=== PATIENT | female | born 1975 | race Caucasian/White ===

== ENCOUNTER → 2018-04-02 | Outpatient (CLI) | payer OTHER ==
[~2018-04-02] MED LIST: ACETCAP13 PO; CALC1TAB25 PO; CHOL1000 PO; CYAN100T PO; MULT-506 PO; NAPR1TAB9 PO; PROG1CAP PO; ZINC1CAP PO
== END | disposition home or self-care (01) ==
LOC: C.PAPS 11:57
PROVIDERS: ATTEND Obstetrics & Gynecology
DX: N92.0 Excessive and frequent menstruation with regular cycle (principal)

== ENCOUNTER 2018-04-12 05:40 | Observation (INO) | payer OTHER ==
[2018-04-02 10:22] LABS: BASO % 0.5 %; BASO ABS # 0.02 K/uL (0-0.2); EOS % 3.8 %; EOS ABS # 0.15 K/uL (0-0.5); HEMATOCRIT 38.9 % (37-47); HEMOGLOBIN 13.4 g/dL (12.0-16.0); LYMPH % 45.7 %; LYMPH ABS # 1.81 K/uL (1.2-3.4); MEAN CELL VOLUME 94.4 fL (80-100); MEAN CORPUSCULAR HEMOGLOBIN 32.5 pg (25-34); MEAN CORPUSCULAR HGB CONC 34.4 g/dl (32-36); MEAN PLATELET VOLUME 9.7 fL (7.4-10.4); MONO % 7.8 %; MONO ABS # 0.31 K/uL (0.11-0.59); NEUT % 42.2 %; NEUT ABS # 1.67 K/uL (1.4-6.5); PLATELET COUNT 238 K/uL (130-400); RED CELL DISTRIBUTION WIDTH CV 12.2 % (11.5-14.5); RED CELL DISTRIBUTION WIDTH SD 41.7 fL (36.4-46.3); WHITE BLOOD COUNT 3.96 K/uL (4.8-10.8)
[2018-04-02 10:33] LABS: BLOOD UREA NITROGEN 19 mg/dl (7-18); CALCIUM 8.7 mg/dl (8.5-10.1); CARBON DIOXIDE 28 mmol/L (21-32); CREATININE 0.71 mg/dl (0.60-1.20); GLUCOSE 107 mg/dl (70-99); POTASSIUM 3.9 mmol/L (3.5-5.1); SODIUM 139 mmol/L (136-145)
[~2018-04-12] VITALS: Ht 157.5 cm; Wt 50.0 kg
[2018-04-12] VITALS (8 sets, daily range): BP systolic 117–137; BP diastolic 61–75; PULSE 53–59; TEMP 36.6–37; O2SAT 99–100; Ht 157.5 cm; Wt 50.0 kg
[2018-04-12] MEDS ORDERED: CEFAZOLIN 2000MG IV PUSH 15 ML IV SCH (06:00)
[2018-04-12] MEDS ORDERED: LACTATED RINGER'S 1000ML 1,000 ML IV SCH ×4 (06:00→10:50)
[2018-04-12] MEDS ORDERED: METHYLENE BLUE 0.5% 10 ML VIAL ONE ×2 (06:57→08:11)
[2018-04-12] MEDS ORDERED: BUPIVACAINE 0.5 % 5 MG/1 ML MPF 30ML VIAL ONE (06:57)
--- NOTE | 2018-04-12 06:59 | History & Physical Bridge Note ---
H&P Re-Evaluation Bridge Note: I have examined the patient, reviewed the History & Physical and in the interval since the performance of the History & Physical I have noted the following changes of clinical significance: No changes noted Note, wishes supra-cervical hysterectomy if possible. Consent changed and initialed with patient. YUNIOR
[2018-04-12] MEDS ORDERED: MIDAZOLAM HCL 1 MG/ML 2ML VIAL ONE (07:05)
[2018-04-12] MEDS ORDERED: FENTANYL CITRATE INJ 50 MCG/1 ML 2 ML VIAL ONE ×2 (07:05→08:54)
[2018-04-12] MEDS ORDERED: SCOPOLAMINE 1.5 MG TDSY TD ONE (07:14)
[2018-04-12] MEDS ORDERED: EpHEDrine SULFATE INJ 50 MG/ML AMP IV PRN (07:30)
[2018-04-12] MEDS ORDERED: PROMETHAZINE HCL INJ 12.5 MG in SODIUM CHLORIDE 0.9% 50ML 50 ML IV PRN ×2 (07:30→11:00)
[2018-04-12] MEDS ORDERED: ATROPINE SULFATE 0.1 MG/ML 5ML SYR IV PRN (07:30)
[2018-04-12] MEDS ORDERED: ACETAMINOPHEN 1000 MG/100 ML IV IV ONE (07:30)
[2018-04-12] MEDS ORDERED: HYDROmorphone INJ 0.5 MG/0.5 ML SYR IV PRN (07:30)
[2018-04-12] MEDS ORDERED: SCOPOLAMINE 1.5 MG TDSY TD SCH (07:30)
[2018-04-12] MEDS ORDERED: ONDANSETRON INJ 2 MG/ML 2 ML VIAL IV PRN ×2 (07:30→11:00)
[2018-04-12] MEDS ORDERED: CHECK SCOPOLAMINE PATCH PLACEMENT SCH ×2 (08:00)
[2018-04-12] MEDS ORDERED: ONDANSETRON INJ 2 MG/ML 2 ML VIAL ONE (08:11)
[2018-04-12] MEDS ORDERED: EpHEDrine SULFATE 50MG/5ML SYR ONE (08:11)
[2018-04-12] MEDS ORDERED: PHENYLEPHRINE 100MCG/ML 5ML SYR ONE (08:11)
[2018-04-12] MEDS ORDERED: DEXAMETHASONE SOD INJ 4 MG/ML VIAL ONE (08:11)
[2018-04-12] MEDS ORDERED: LIDOCAINE HCL 2% 2 ML VIAL (20MG/ML) ONE (08:11)
[2018-04-12] MEDS ORDERED: GLYCOPYRROLATE INJ 0.2 MG/ML VIAL ONE (08:11)
[2018-04-12] MEDS ORDERED: ROCURONIUM BROMIDE 10 MG/ML 5 ML VIAL ONE ×2 (08:11→08:59)
[2018-04-12] MEDS ORDERED: LARYING-O-JET KIT (LTA) ONE (08:11)
[2018-04-12] MEDS ORDERED: KETOROLAC TROMETHAMINE 30 MG/ML VIAL ONE (08:11)
[2018-04-12] MEDS ORDERED: NEOSTIGMINE METHYLSULFATE 5 MG/5 ML SYR ONE (08:11)
[2018-04-12] MEDS ORDERED: PROPOFOL IV EMULSION 10 MG/ML 20 ML VIAL ONE (08:11)
[2018-04-12] MEDS ORDERED: TISSEEL FIBRIN SEALANT 4ML TOP ONE (08:37)
--- NOTE | 2018-04-12 10:45 | [facility] Post Operative Brief Note ---
Immediate Operative Summary Operative Date April 12, 2018. Pre-Operative Diagnosis 1. Uterine Leiomyoma 2. Female Pelvic Pain 3. Menorrhagia Post-Operative Diagnosis 1. Uterine Leiomyoma 2. Female Pelvic Pain 3. Menorrhagia 4. Uterus larger than 250 grams Procedure(s) Performed Laparoscopic Supracervical Hysterectomy; Bilateral Salpingectomy; Cystoscopy; Excite procedure [place] Surgeon Dr. Hanane Owen Mobile Device Engineer Surgeon(s) Dr. Loulou Torres Estimated Blood Loss 30 mL Findings Consistent with Post-Op Diagnosis Specimens Permanent specimens A: Bilateral Fallopian tubes B: Surgically Resected Uterus Drains Marrero Anesthesia Type General Complication(s) none Disposition Accompanied Pt To Recover: no Disposition: Recovery Room / PACU
--- NOTE | 2018-04-12 10:53 | Discharge Instructions ---
Discharge Instructions Date of Service April 12, 2018. Admission Reason for Admission: Uterine Leiomyoma; Menorrhagia; Pelvic Pain in Fem Discharge Discharge Diagnosis / Problem: uterine fibroids Discharge Goals Goal(s): Routine recovery after surgery Activity Recommendations Activity Limitations: per Instructions/Follow-up section . Instructions / Follow-Up Instructions / Follow-Up POST OPERATIVE: BOWEL FUNCTION/MEDICATIONS: 1. Constipation pain and discomfort are the most common complaints 5-7 days after surgery. Points 2-6 address the things that can help. 2. Chewing gum can help stimulate the gut and help improve digestion and motility. 3. Milk of Magnesia 1-2 times per day until return of bowel function. 4. Colace is a stool softener that helps. Taking this 2-3 times per day until bowel function returns to normal is highly recommended. 5. Dulcolax is a laxative that may be used if several days have passed without a bowel movement. Alternatively Miralax may be used daily instead. 6. Drink plenty of fluids as this will also reduce constipation. 7. Narcotic pain medications will be prescribed by your physician. They are safe to use and we encourage you to use them. If you are not allergic, ibuprofen will also be prescribed. Many patients will be able to transition off of the narcotic medications to ibuprofen by postoperative day 3. ACTIVITY RECOMMENDATIONS: 1. Get plenty of rest and listen to your body. If you are tired, take a nap. 2. You may shower, but do not take a tub bath until you see your doctor at the 2 week post operative visit. 3. Absolutely NO intercourse and nothing in the vagina until you are examined by your doctor at the 6 week visit. At that visit it will be determined when such activities can be resumed. This can range from 6-12 weeks after your surgery depending on healing time. 4. The main physical activity in the first week should be walking. By the second week you can slowly increase activity. There are no limits on walking up and down stairs. 5. Do not lift more than 5-10 lbs for 4 weeks. Remember the "one-handed rule", i.e. if you can lift something with only one hand it's likely okay. 6. Minimize biologics specialist like vacuuming and exercising for 4 weeks. "Overdoing it" can lead to incisions not healing, pain and vaginal bleeding , so again, listen to your body. 7. Driving can be resumed when you feel able. Do not drive within 24 hours of taking a narcotic medication. EXPECTATIONS: 1. Vaginal spotting, bleeding and discharge are common after surgery. There may even be an odor to the discharge which is often related to sutures used in the vagina. If you experience heavy vaginal bleeding, call the office number day or night [phone]. 2. Bladder discomfort is common after surgery from the catheter. This usually resolves in 1-2 weeks. 3. By the end of the 3rd or 4th week you should be feeling much better. It may take up to 6 weeks for your energy levels to return to normal. 4. Narcotic medications have side effects such as: dizziness, headache, nausea and/or vomiting. If you suspect your pain medication is causing problems, call our office and we may be able to prescribe an alternate medication. 5. The skin incisions are often covered with a liquid bandage. This will gradually peel off over time. CALL THE OFFICE IF YOU HAVE ANY OF THE FOLLOWIN. Temperature of 101 degrees or higher. 2. Severe abdominal or pelvic pain not relieved by pain medication. 3. Persistent nausea or vomiting. 4. Increased pain with urination or difficulty urinating. 5. Bright red bleeding that soaks more than 1 pad per hour. CONTACT PHONE NUMBERS: Main Office: [phone] Surgical Nurse: [phone] extension [phone] Avoid all tobacco products. If you need help to stop smoking, call [place]'s FREE QUITLINE at . This is a free call. Current Hospital Diet Patient's current hospital diet: Discharge Diet Recommended Diet: Regular Diet Procedures Procedures Performed: Laparoscopic Supracervical Hysterectomy; Bilateral Salpingectomy; Cystoscopy; Excite procedure DaVinci Pending Studies Studies pending at discharge: no Medical Emergencies . Who to Call and When: Medical Emergencies: If at any time you feel your situation is an emergency, please call 911 immediately. . Non-Emergent Contact Non-Emergency issues call your: Clay Carman . . "Provider Documentation" section prepared by Brian Owen. .
[2018-04-12] MEDS ORDERED: OXYC-57 PO (10:54)
[2018-04-12] MEDS ORDERED: MTR600X PO (10:54)
[2018-04-12] MEDS ORDERED: SIMETHICONE 80 MG CHEW PO PRN (11:00)
[2018-04-12] MEDS ORDERED: ACETAMINOPHEN 325 MG TAB PO PRN (11:00)
[2018-04-12] MEDS ORDERED: ZOLPIDEM TARTRATE 5 MG TAB PO PRN (11:00)
[2018-04-12] MEDS ORDERED: KETOROLAC TROMETHAMINE 15 MG/ML VIAL IV. PRN (11:00)
[2018-04-12] MEDS ORDERED: BISACODYL 10 MG SUPP PR PRN (11:00)
[2018-04-12] MEDS ORDERED: MEPERIDINE HCL 50 MG/ML CARP IV PRN ×2 (11:00)
[2018-04-12] MEDS ORDERED: IBUPROFEN 600 MG TAB PO PRN (11:00)
[2018-04-12] MEDS ORDERED: OXYCODONE/ACETAMINOPHEN 5-325 TAB PO PRN ×2 (11:00)
[2018-04-12] MEDS ORDERED: MAGNESIUM HYDROXIDE SUSP 30 ML UDC PO PRN (11:00)
[2018-04-12] MEDS ORDERED: PROMETHAZINE HCL INJ 25 MG in SODIUM CHLORIDE 0.9% 50ML 50 ML IV PRN (11:00)
[2018-04-12] MEDS: FENTANYL CITRATE INJ 50 MCG/1 ML 2 ML VIAL IV PRN ×3 (11:08→11:26)
--- NOTE | 2018-04-12 11:57 | Anesthesiology Progress Note ---
Anesthesia Post Op Note Date & Time April 12, 2018 at 11:57 Vital Signs Pain Intensity: 6 Vital Signs Past 12 Hours Date Time Temp Pulse Resp B/P (MAP) Pulse Ox O2 Delivery O2 Flow Rate FiO2 04/12/18 11:50 53 22 126/76 99 Nasal Cannula 2 04/12/18 11:40 36 50 14 124/72 100 Nasal Cannula 2 04/12/18 11:30 48 12 123/71 100 Nasal Cannula 2 04/12/18 11:15 48 20 127/74 100 Oxymask 10 04/12/18 11:05 45 16 124/74 100 Oxymask 10 04/12/18 10:56 36.6 48 12 134/79 100 Oxymask 10 04/12/18 06:00 36.6 59 18 117/61 (79) 100 Room Air Notes Mental Status: alert / awake / arousable, participated in evaluation Pt Amnestic to Procedure: Yes Nausea / Vomiting: adequately controlled Pain: adequately controlled Airway Patency, RR, SpO2: stable & adequate BP & HR: stable & adequate Hydration State: stable & adequate Anesthetic Complications: no major complications apparent
--- NOTE | 2018-04-12 12:36 | OPERATIVE REPORT ---
DATE OF OPERATION: 04/12/2018 PREOPERATIVE DIAGNOSES: Uterine leiomyoma, female pelvic pain, menorrhagia, enlarged uterus. POSTOPERATIVE DIAGNOSES: Uterine leiomyoma, female pelvic pain, menorrhagia, enlarged uterus. PROCEDURE: Laparoscopic supracervical hysterectomy, bilateral salpingectomy, cystoscopy, and removal of specimen through ExCITE procedure, da Chris robotically assisted. SURGEON: Brian Owen MD VETERINARY MEAT INSPECTOR: KIMMIE Martinez ESTIMATED BLOOD LOSS: 30 mL. FINDINGS: Enlarged uterus. SPECIMENS: Bilateral fallopian tubes, surgically resected uterus. DRAINS: Marrero catheter. ANESTHETIC: General. COMPLICATIONS: None. DISPOSITION: Recovery room. DESCRIPTION OF PROCEDURE: Anastasia was given a general anesthetic, prepped and draped in dorsal lithotomy position in [facility]. IV Ancef given. Time-out performed and procedure begun by draining the bladder with a Marrero catheter. Cervix was very anterior, was able to grasp this with a single tooth tenaculum, dilate this and then placed the V-Care and sow 1 suture into the cervix. Once the VCare was in place, I was able to do bimanual as well. Uterus filled the pelvis approximately 14-week size. Gloves changed and a supraumbilical incision made with scalpel. Using cut down technique, we cut through the subcutaneous fat to the fascia, splitting the rectus muscles and entering the peritoneal cavity without difficulty. Blunt-tipped Jigna trocar placed, balloon inflated to stabilize the port, CO2 gas used to insufflate the abdomen. FINDINGS: Upper abdomen normal, no sign of visceral organ injury. Deep Trendelenburg position revealed an enlarged uterus, smooth walled, no sign of malignancy. Bilateral normal fallopian tubes and ovaries. No significant adhesive disease. Three robotic ports were made under direct visualization, 2 on the right and 1 on the left and a left upper quadrant 11 mm bladeless incision. Robot was then docked. Arm #1 was monopolar raymond, arm #2 was bipolar [place], arm #3 was ProGrasp and at some points tenaculum. The procedure was begun by manipulating through the V-Care, identifying the ureter following a normal course on the left side. We removed the fallopian tube first and this was removed through the accessory port. We identified the uteroovarian blood supply and coagulated this with the bipolar [place] and cut this with the monopolar raymond. We were well away from the left ureter. Same process with the round ligament, skeletonized the uterine vessels on the left side and fully dissected away the bladder flap. I was then able to coagulate the vessels on the left side with the bipolar [place] well away from the left ureter, vessels were then cut with monopolar raymond. Same exact process was repeated on the right, staying well away from the right ureter and once both sets of uterine vessels were ligated, we amputated the cervical stump and the uterus in the upper part of the cervix off of the cervical stump. This was done with monopolar raymond. The uterus was then placed in the upper abdomen for storage for the moment, identified the cuff. We coagulated the endocervical canal with the monopolar raymond and then closed the cuff as well with a 12 inch 2-0, 90-day V-Loc suture. It should be noted, we performed an instrument exchange at that time. Arm #1 became the santosh needle cement mixer driver, arm #2 became the [employer] grasper. IV methylene blue was given by anesthesia. Suture was cut, so there was no tail. We then performed cystoscopy and there were good strong jets of urine coming from both left and right ureter openings. No sign of damage or sutures in the bladder. Cystoscope removed and a new Marrero catheter placed. At this stage, we then applied Tisseel to the cervical stump and also the pedicles, 4 mL applied. The robot was then undocked. We removed the umbilical port and placed a 15 mm umbilical port using the large surgical bag through this and then using a grasper to place the uterine specimen into the bag. The bag was then brought out to the umbilicus. Using the ExCITE technique, we carefully resected the fibroid uterus. We also used an Mateus retractor to facilitate the process. This was a small retractor. The specimen was removed entirely. There were no perforations in the bag and we did periodically visualized with the laparoscope to ensure there was no damage to surrounding internal structures and the abdomen. Once everything was fully removed including the Mateus retractor and the bag, we temporarily occluded the port and checked the pelvis. The hemostasis was excellent. After suction irrigation, there was no further bleeding from anywhere else in the pelvis. Gas was allowed to escape. Ports removed. Incisions all injected with 0.5% Marcaine. Fascia was very carefully closed at the umbilical incision. It was somewhat larger to allow removal of the specimen. Same process in the left upper quadrant where the fascia was closed with 0 Vicryl. Subcutaneous fat irrigated. Skin closed with 4-0 subcuticular Monocryl and Dermabond applied. During the procedure, sponge and instrument counts correct. The patient sent to recovery room in stable condition. I attest to the content of the Intraoperative Record and any orders documented therein. Any exception s are noted below.
[2018-04-12] MEDS ORDERED: IV FLUIDS COMPLETED PRN (13:45)
[2018-04-12] MEDS ORDERED: DOCUSATE SODIUM 100 MG CAP PO SCH (21:00)
--- NOTE | 2018-04-13 08:58 | DISCHARGE SUMMARY ---
Anastasia had a supracervical laparoscopic hysterectomy on 04/12/2018. Her procedure was uncomplicated. She was discharged several hours after surgery. At that time, she was voiding well, ambulating, tolerating oral diet. Her pain was well controlled on oral medication. She had no extremity pain. The patient was sent home with discharge instructions, Percocet and Motrin and told to follow up in the office.
== END 2018-04-12 18:15 | disposition home or self-care (01) ==
LOC: C.ACU 05:40 → C.MS4N 10:52 → ENRESERV 11:38
PROVIDERS: ADMIT Obstetrics & Gynecology; ATTEND Obstetrics & Gynecology
DX: D25.9 Leiomyoma of uterus, unspecified (principal); R10.2 Pelvic and perineal pain; N92.0 Excessive and frequent menstruation with regular cycle; N85.2 Hypertrophy of uterus
CPT/HCPCS: 58544; S2900